=== PATIENT | female | born 1945 | race Caucasian/White ===

== ENCOUNTER 2022-09-07 20:30 | Emergency (ER) | payer MEDICARE, SELFPAY ==
[2022-09-07 20:46] VITALS: BP 134/82; PULSE 81; RESP 22; TEMP 36.2; O2SAT 98; BMI 24.9
--- NOTE | 2022-09-07 21:18 | XRR_ITS ---
PROCEDURE INFORMATION: Exam: XR Right Shoulder Exam date and time: 09/07/2022 9:52 PM Age: 76 years old Clinical indication: Injury or trauma; Fall; Blunt trauma (contusions or hematomas); Shoulder; Right; Additional info: Fall, pain, decreased rom TECHNIQUE: Imaging protocol: Radiologic exam of the right shoulder. Views: 2 or more views. COMPARISON: CR XR shoulder RT min 2V* [id number] 09/21/2015 9:50 AM FINDINGS: Bones/joints: Humeral neck fracture with medial rotation of the fracture component of the head with overlap of the fracture fragments. Soft tissues: Normal. XR/XR shoulder RT min 2V* [id number] IMPRESSION: Humeral neck fracture with medial rotation of the fracture component of the head with overlap of the fracture fragments.
[2022-09-07 22:33] VITALS: RESP 16
[2022-09-07] MEDS: oxyCODONE-APAP 5-325 mg Tablet 1 TAB PO (22:33)
--- NOTE | 2022-09-07 22:45 | ED_ITS ---
HPI - Extremity Problem General: Chief complaint: Extremity Injury, Upper Stated complaint: right shoulder injury Time Seen by Provider: 09/07/22 22:29 Source: patient Mode of arrival: ambulatory Limitations: no limitations History of Present Illness: Patient presents to the emergency department today accompanied by family for evaluation treatment of right shoulder pain after a fall. Patient reports minimal mobility of the arm due to pain in her shoulder. She denies tingling or numbness in her fingers and still has movement to the distal extremity. Review of Systems General: Reports: 10 or more systems reviewed and unremarkable except in HPI and below PFSH ED PFSH: Social History Smoking and tobacco status: never smoked Physical Exam Const: COMMON NORMALS: no acute distress, patient oriented x3 and alert HENMT: COMMON NORMALS: normocephalic, atraumatic and hearing grossly normal bilaterally HEAD & SCALP: normocephalic and atraumatic Eye: COMMON NORMALS: Equal, round and reactive pupils present, EOMs intact bilaterally and conjunctivae normal CONJUNCTIVA: Yes conjunctivae normal PUPIL: Yes Equal, round and reactive pupils present Neck/C-Spine: COMMON NORMALS: full ROM and no JVD Lymph: LYMPHATIC: no lymphadenopathy noted Resp: COMMON NORMALS: normal respiratory effort, No retractions and No use of accessory muscles Cardio: COMMON NORMALS: no JVD and regular rate RATE: regular rate Extremity: NARRATIVE EXTREMITY EXAM: Patient is in significant pain just sitting in the exam room. Patient demon strates mobility of the lower extremity and is neurovascularly intact however, has no capabilities for range of motion to her right shoulder or upper arm. Neuro: COMMON NORMALS: patient oriented x3 SENSORIUM/ORIENTATION: Yes alert Psych: COMMON NORMALS: mental status grossly normal, Normal thought process present, cooperative and normal affect THOUGHT PROCESS: Normal thought process present Skin: COMMON NORMALS: no rashes or lesions noted and turgor normal GENERAL SKIN EXAM: no rashes or lesions noted and turgor normal Course Vital Signs: Vital signs: Vital Signs Temperature 97.2 F L 09/07/22 20:46 Pulse Rate 81 09/07/22 20:46 Respiratory Rate 16 09/07/22 22:33 Blood Pressure 134/82 09/07/22 20:46 Pulse Oximetry 98 09/07/22 20:46 Oxygen Delivery Me thod Room Air 09/07/22 20:46 MDM - Extremity (Nontraumatic) Medical Decision Making Patient presents to the emergency department today for evaluation treatment of right shoulder pain after a fall. Patient's x-ray indicates a humeral neck fracture with rotation of the humeral head which overlaps the fracture fragment s. Discussed this x-ray finding with Dr. Bhatia who agrees that patient will most likely have outpatient follow-up and will most likely not be given surgery. Discussed with patient the findings on her x-ray. Also discussed recommendation for sling and swath and pain control with orthopedic follow-up. Patient is extremely concerned as she has many questions as to how she will cope with an immobile right arm. Explained that she will most likely require help from friends and family-patient lives alone, but that she needs to follow-up with orthopedics to discuss her options for healing or further treatment/intervention. Patient was given a Percocet here in the emergency department for pain prior to application of her sling. Patient was also given 2 Percocets to take home with her as it is Thursday night and there are no pharmacies available or open at this time. Patient was then given a written prescription to take to the pharmacy in the morning to fill for several more days of pain medication while she is waiting to have her follow-up with orthopedics. Differential Diagnosis Unlikely cellulitis (Clavicular fracture, AC joint separation, humeral neck fracture, shoulder contusion) Lab Data Radiology Impressions Shoulder X-Ray 09/07/22 21:18 IMPRESSION: Humeral neck fracture with medial rotation of the fracture component of the head with overlap of the fracture fragments. Discharge Plan Discharge Patient Disposition: Home Clinical Impression: Humerus surgical neck fracture Condition: Stable Prescriptions: No Action simvastatin 20 mg tablet 20 mg PO DAILY amlodipine 10 mg tablet 10 mg PO DAILY potassium chloride 10 mEq tablet extended release 10 meq PO DAILY spironolactone 25 mg tablet 25 mg PO DAILY zolpidem 10 mg tablet PO Discharge Orders: Discharge ED (Routine); Ordered 09/07/22 Ordered By: Stephanie Crawley Referrals: Azul Bartlett APN [Primary Care Provider] - Pj Carias Jr, MD [Family Provider] - Discharge Diet: Usual diet Discharge Activity: Limit activity as instructed Patient Instructions: Fractures - Humerus Activity Restrictions/Additional Instructions: X-ray today shows a fracture in your right upper arm involving the bone that sits in your shoulder joint. The very top part of the bone remained in the socket however, there is a fracture to the bone below this area. We are putting you in a sling which needs to remain in place at all times. We have requested a follow-up appointment with orthopedics for an evaluation as you will need to have a discussion regarding your options for healing or repair. We have provided you a short course of some pain medication to help with your discomfort during this time. You may wish to stay seated in a recliner to sleep and, pack pills around your arm to help prevent moving at night. Coding Level of Care Code ED Financial Advisor Trainee for Tom Bray
--- NOTE | 2022-09-08 10:06 | DCPLANNER ---
Addendum entered by Bernie Hui 09/09/22 08:09: sales service manager received the following message from the ortho clinic regarding follow up appointment: patient called back and stated she already has a follow up w/ Dr. Jaquez in [facility]. Original Note: sales service manager had message to schedule a follow up appointment for patient with ortho. sales service manager sent patients information to the front office staff at ortho. Patients information will be printed and reviewed. Clinic will call patient with appointment information.
== END 2022-09-08 00:15 | disposition home or self-care (01) ==
PROVIDERS: Emergency Provider Physician Assistant; Family Provider Family Medicine; PCP Nurse Practitioner
DX: S42.211A Unspecified displaced fracture of surgical neck of right humerus, initial encounter for closed fracture (principal); W19.XXXA Unspecified fall, initial encounter
CPT/HCPCS: 73030; 99283

== ENCOUNTER 2023-12-18 12:26 | Outpatient (CLI) | payer MEDICARE, SELFPAY ==
--- NOTE | 2023-12-18 12:30 | XR_ITS ---
WS: [id number] Right shoulder, 2 views, 12/18/2023 Clinical Data: R SHOULDER REPAIR/R SHOULDER PAIN Comparison: Right shoulder, 09/07/2022 Findings: The internal fixation of the fracture of the right humeral head and shaft is seen. There is a lateral plate fixed with multiple screws. The adjacent right scapula, right clavicle and ribs are intact. XR/XR shoulder RT min 2V* [id number] Impression: Internal fixation of right humeral head and shaft fracture.
--- NOTE | 2023-12-18 12:30 | XR_ITS ---
WS: [email or web address] Chest 2 views, 12/18/2023 Clinical Data: CHEST PAIN ON RESPIRATION Comparison: Two-view chest, 05/21/2016 Findings: No nodules, masses or effusions are seen. The heart is normal. The pulmonary vascularity is not increased. No pneumonia or pneumothorax is seen. The aortic arch and descending thoracic aorta s how mild tortuosity. There is internal fixation of a proximal right humeral fracture. XR/XR chest 2V* [id number] Impression: Atherosclerosis.
== END 2023-12-18 12:27 | disposition home or self-care (01) ==
LOC: RAD 12:29
PROVIDERS: Family Provider Family Medicine; PCP Family Medicine; Visit Provider Family Medicine
DX: M25.511 Pain in right shoulder (principal); R07.1 Chest pain on breathing; Z96.611 Presence of right artificial shoulder joint
CPT/HCPCS: 71046; 73030

== ENCOUNTER 2024-01-19 15:30 | Outpatient (CLI) | payer MEDICARE, SELFPAY ==
--- NOTE | 2024-01-19 15:34 | CT_ITS ---
WS: [id number] CT chest wo con [id number] HISTORY: CHEST PAIN ON RESPIRATION TECHNIQUE: Axial imaging performed through the thorax. Coronal and sagittal reformats are submitted. All CT scans at [facility] use at least one of these dose optimization techniques: automated exposure control; mA and/or kV adjustment per patient size (includes targeted exams where dose is mat ched to clinical indication); or iterative reconstruction. CONTRAST: None DLP: 256.31 mGy.cm COMPARISON: Chest radiograph 12/18/2023 Lungs and central airway: Normally aerated lungs. There are multiple bilateral and multi lobar nodule s. The largest nodule is 5 mm in the RIGHT lower lobe, image 36 of series 4. There are a few addition al 4 mm nodules and micronodules. No mass. No endobronchial lesions. Pleura: Normal. No pleural effusion. Heart and pericardium: Normal size heart with no pericardial effusion. Mediastinum and agustin: No mediastinum or hilar adenopathy. Vessels: Mild atherosclerosis aorta. Normal size pulmonary artery. There are a few scattered coronary artery calcifications. Chest wall and lower neck: Lobulated soft tissue mass in the central posterior LEFT breast measures 1 .8 x 3.5 cm and needs to be further evaluated. No prior mammograms available. Upper abdomen: Suprarenal aortic calcifications. The adrenal glands aren't completely included but ne gative as visualized. Mild pancreatic atrophy. Osseous structures: Prior plate and screw fixation proximal RIGHT humerus. CT/CT chest wo con [id number] IMPRESSION: 1. Bilateral, multilobar pulmonary nodules. The largest is 5 mm in the RIGHT l ower lobe. Indeterminate nodule. Due to slightly spiculated margins recommend c hest CT at 12 months. Multiple indeterminate pulmonary nodules. The largest one is solid and measures 5 mm. For multiple nodules <6 mm in a patient of unknown risk, with the larges t one being solid, for a low-risk patient, recommend no follow-up. For a high-r isk patient, CT at 12 months is optional with stronger consideration if there i s suspicious nodule morphology and/or upper lobe location. 2. Lobulated LEFT breast mass measures 1.8 x 3.5 cm. Recommend evaluation by di agnostic mammogram and ultrasound.
== END 2024-01-19 15:31 | disposition home or self-care (01) ==
PROVIDERS: Family Provider Family Medicine; PCP Family Medicine; Visit Provider Family Medicine
DX: R91.8 Other nonspecific abnormal finding of lung field (principal); N63.20 Unspecified lump in the left breast, unspecified quadrant; I70.0 Atherosclerosis of aorta; R07.1 Chest pain on breathing
CPT/HCPCS: 71250

== ENCOUNTER 2024-02-11 11:46 | Outpatient (CLI) | payer MEDICARE, SELFPAY ==
--- NOTE | 2024-02-11 11:58 | MM_ITS ---
WS: [email or web address] BILATERAL 3D TOMOSYNTHESIS DIGITAL DIAGNOSTIC MAMMOGRAPHY WITH CAD CLINICAL INFORMATION: BREAST MASS HISTORY: LEFT breast mass on CT COMPARISON: CT chest 01/19/2024 TECHNIQUE: Bilateral CC, MLO, and ML views. FINDINGS: Scattered fibroglandular densities bilaterally. Lobulated heterogeneous spiculated mass lower outer L EFT breast measuring 2.8 x 2.0 cm highly suspicious for malignancy. Associated punctate calcification s. Irregular margins. This is deep to the palpable marker. RIGHT breast is unremarkable. ULTRASOUND BREAST LEFT TECHNIQUE: Ultrasound left breast focused area of concern. CLINICAL INFORMATION: BREAST MASS FINDINGS: Ultrasound LEFT breast area of concern. Solid hypoechoic irregular densely shadowing mass suspicious for neoplasm at the 5 o'clock position 3 cm from the nipple. Associated vascularity. This measures ap proximately 3.5 x 2.9 x 1.9 cm with irregular margins suggestive of surrounding parenchymal invasion also seen on the mammogram. Recommend further evaluation with ultrasound-guided biopsy. Ultrasound LEFT axilla. No lymphadenopathy in the LEFT axilla. No suspicious lymph nodes visualized. A few normal sized normal-appearing lymph nodes. MM/MM diag BI tomosynthesis [id number] IMPRESSION: DENSITY: There are scattered areas of fibroglandular density. BI-RADS: 5 - Highly suggestive of Malignancy. FOLLOW UP: US Guided Biopsy Recommended Recommendation guided biopsy of the suspicious LEFT breast mass
== END 2024-02-11 11:47 | disposition home or self-care (01) ==
LOC: RAD 11:47
PROVIDERS: Family Provider Family Medicine; PCP Family Medicine; Visit Provider Family Medicine
DX: N63.23 Unspecified lump in the left breast, lower outer quadrant (principal); R92.323 Mammographic fibroglandular density, bilateral breasts; R92.1 Mammographic calcification found on diagnostic imaging of breast
CPT/HCPCS: 76642; 77062; G0279

== ENCOUNTER 2024-03-09 13:37 | Outpatient (CLI) | payer MEDICARE, SELFPAY ==
--- NOTE | 2024-03-09 13:47 | US_ITS ---
WS: [id number] ULTRASOUND-GUIDED LEFT BREAST BIOPSY HISTORY: LEFT BREAST MASS COMPARISON: 02/11/2024 Procedure, risks and complications are explained to the patient. Medications are reviewed. Consent is obtained. The mass in the LEFT breast is localized with ultrasound. Mass localizes to 5:00, 3 cm from the nippl e. Skin is cleansed with ChloraPrep and anesthetized with 1% buffered lidocaine. Small dermatome is m estephania. Under sterile conditions mass is biopsied with a 14-gauge Achieve needle. Multiple core biopsies are performed. Material placed in formalin and sent to pathology for review. No complications encoun tered. Breast tissue marker ([employer] ultrasound enhanced ribbon): Single. Patient left the radiology suite with no complications. Patient is instructed to return to [facility] or [facility] with any concerns. US/[place] [id number] IMPRESSION: 1. Uncomplicated core needle biopsy LEFT breast mass centered at 5:00. 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 Breast profile is pending. Separate breast prognostic profile will be submitted. RECOMMENDATION: Follow-up with primary physician, breast surgeon and oncology.
== END 2024-03-09 13:38 | disposition home or self-care (01) ==
LOC: RAD 13:37
PROVIDERS: PCP Family Medicine; Visit Provider Family Medicine
DX: N63.23 Unspecified lump in the left breast, lower outer quadrant (principal)
CPT/HCPCS: 19083; 88305; 88342; 88361; 88374

== ENCOUNTER 2024-06-15 12:44 | Oncology outpatient (recurring) (ONCR) | payer MEDICARE, SELFPAY ==
[2024-06-08 16:59] LABS: Basophils % 0.4 %; Eosinophils # 0.2 10^3/uL (0.0-0.8); Eosinophils % 2.1 %; Hematocrit 42.9 % (36-47); Lymphocytes # 2.8 10^3/uL (0.8-4.8); Lymphocytes % 25.3 %; Mean Corpuscular HGB Conc 32.6 g/dL (30-55); Mean Corpuscular Hemoglobin 28.7 pg (27-33); Mean Corpuscular Volume 87.9 fl (85-98); Mean Platelet Volume 10.4 fL (7.4-10.4); Monocytes # 0.6 10^3/uL (0.2-0.9); Monocytes % 5.5 %; Neutrophils % 66.3 %; Nucleated Red Blood Cells % 0 %; Platelet Count 270 10^3/cmm (157-399); Red Blood Count 4.88 10^6/uL (3.85-5.65); Red Cell Distribution Width 12.6 % (12.1-15.1); White Blood Count 10.99 10^3/uL (3.29-11.43)
[2024-06-08 17:36] LABS: Alanine Aminotransferase 15 U/L (0-33); Albumin Level 4.6 g/dL (3.5-5.2); Alkaline Phosphatase 129 U/L (35-105); Anion Gap 16.8 (5-19); Aspartate Amino Transferase 18 U/L (0-32); Blood Urea Nitrogen 13 mg/dL (8-23); CA 15-3 22.9 U/mL (0-25); Calcium 9.9 mg/dL (8.5-10.5); Carbon Dioxide 24 mmol/L (22-29); Chloride 106 mmol/L (98-107); Creatinine Clr Calc Pharmacy 42.8929; Globulin 2.9 g/dL (1.3-4.6); Glucose 101 mg/dL (65-115); Lactate Dehydrogenase 171 U/L (135-214); Osmolality Calculated 296 mOsm/kg (285-295); Potassium 3.8 mmol/L (3.5-5.1); Sodium 143 mmol/L (136-145); Total Bilirubin 0.5 mg/dL (0.15-1.2); Total Protein 7.5 g/dL (6.6-8.7)
--- NOTE | 2024-06-15 13:56 | N.ONRAD NP_ITS ---
Radiation Oncology New Patient Visit Patient: Anca García MR#: [id number] : 1945 Age: 78 Sex: Female Dictated by: Dr. Dionna Hernández Date of Service: 06/15/2024 Referring Physician(s) : Dr. Cooper Diagnosis: Stage T2 N0 left-sided breast cancer, stage IIa Radiotherapy to date: Summary > No prior radiation therapy. Chief Complaint / History of Present Illness: Patient has been recently diagnosed with an ER positive H ER 2 negative grade 3 stage T2 N0 breast cancer of the left breast. She has had breast conserving surgery on the left breast. She also had an area remove the right breast which was benign. She is here today to discuss the radiation portion of her treatment after having had breast conserving surgery. Subjectively her only complaint today has to do with her back which apparently has been a long-term issue but had gotten worse since her surgery on her humerus in 2022. This is located in the mid thoracic area and radiates around to the front. When she takes a deep breath sometimes it will radiate under the right scapula. Current Medications: amlodipine 10 mg PO DAILY potassium chloride ER 10 mEq PO DAILY simvastatin 20 mg PO DAILY spironolactone 25 mg PO DAILY zolpidem PO Allergies: No Known Allergies Allergy Medical History: No history of collagen vascular disease. No previous radiation therapy. Right humeral fracture hypotension Surgical History: S/P lumpectomy, left breast Family History: Her daughter actually had a sarcoma in her 20s and from this Social History: Smoking and tobacco/nicotine status: never used tobacco/nicotine Current Complaints / Review of Systems: . Only complaint is to do with her midthoracic back pain Vital Signs: Performed on 06/15/2024 12:56 PM BMI - 24.186 kg/m2 (high), Height - 61 in, Weight - 128 lbs, Temperature - 96.8 f, Pulse - 83 /min, Respiration - 18 /min, O2 Sat - 97 %, Pain - 0, Fatigue - 0 and BP - 133/ 82 mm(hg). Physical Exam: General: Patient is in no apparent distress today. She is by herself today. HEENT: Normocephalic atraumatic. Pupils are equal, sclera clear, extraocular muscles intact. Pulmonary: Respiratory is regular nonlabored Cardiovascular: Regular rate and rhythm Breast: The right breast has a very healed medial lower incision. The left breast has a left lower outer quadrant healing incision. The axillary incision on the left is also healing nicely. There is no erythema or drainage noted in either of her incisions. Abdomen: Patient's abdomen is flat with minimal adipose tissue Extremities: No lymphedema noted in the upper extremities Neurological: Alert and orient x 3. Gait and speech within normal limits Psychological: Affect appropriate for current situation Performance Status: 100 Imaging: See HPI Impression: Stage II, T2 N0 ER positive grade 3H ER 2 negative left-sided breast cancer Plan: I reviewed with her her pathology. We talked about breast conserving therapy. She understands the radiation is a portion of that treatment. We talked about the different protocols we have now for breast cancer patients. These range from 4 weeks down to once a week for 5 weeks. All of these worked quite well and have the same control rate. We talked about the difference of his between the different treatments. We reviewed the risks and side effects both acute and long-term. After some discussion she would like to proceed with the once a week treatment. I do think this would be easier for her with her back discomfort that she has. We also touched on how she was not happy with taking any medication or chemotherapy. She is contemplating discontinuing follow-up in medical oncology as she is really not interested in taking any medications. At this point of asked her to return next week to undergo simulation. During that time she will work on stretching out her left arm. Her shoulder is still a little tight after the surgery. Will also get all of the imaging she had done in [place] and see if any images were done on her back. Will see if we can determine the etiology of her back discomfort which bothered her considerably during our encounter of 45 minutes. Signed by: 06/15/2024 1:54:35 PM <<Signature on File>> Time spent with patient:45 CPT Code: CPT Code:
== END 2024-06-17 23:59 | disposition home or self-care (01) ==
PROVIDERS: PCP Family Medicine; Visit Provider Internal Medicine
DX: C50.512 Malignant neoplasm of lower-outer quadrant of left female breast (principal); Z17.0 Estrogen receptor positive status [ER+]; M54.6 Pain in thoracic spine
CPT/HCPCS: 36415; 80053; 83615; 85025; 86300; 99204; 99205

== ENCOUNTER 2024-07-12 13:01 | Oncology outpatient (recurring) (ONCR) | payer MEDICARE, SELFPAY ==
--- NOTE | 2024-06-27 14:21 | ONCRAD TMN_ITS ---
dRadiation Oncology Weekly Treatment Management Patient: Ricky March> MR#: [id number] : 1945> Attending Physician: Dr. Dionna Hernández Date of Service: 06/27/2024 Fractions: 105 Referring Physician(s) : Diagnosis: C50.912 - Malignant neoplasm of unspecified site of left female breast, Diagnosed 06/16/2024 (Active) Radiotherapy to date: Course: L breast, Treatment Site: Lt Breast, Ref. ID: CTV, Energy: 6X, Dose/Fx (cGy): 570, #Fx: 1 / 5, Dose Correction (cGy): 0, Total Dose Delivered (cGy): 570, Start Date: 06/27/2024, Elapsed Days: 0 Reason for visit: The patient is being seen today as part of their regularly scheduled weekly on treatment visits to assess for acute toxicities from radiotherapy. Review of Systems: Patient has had no questions or problems today relating to her breast cancer. She did say that her ears have been hurting and she was placed on antibiotic which should be finished in the next day or so. Vital Signs: Performed on 06/27/2024 10:53 AM BMI - 23.997 kg/m2 (high), Height - 61 in, Weight - 127 lbs, Temperature - 98.7 f, Pulse - 90 /min, Respiration - 17 /min, O2 Sat - 96 %, Pain - 4, Fatigue - 0 and BP - 115/ 52 mm(hg)(/low). Physical Exam: No changes on exam in regards to her breast. Examination of both of her ear canals reveal them to be quite small and actually very obscured with hair. I was unable to visualize either tympanic membrane. Imaging: Radiation therapy imaging related to accurate target localization (i.e. KV, MV and CBCT) was reviewed. Appropriate changes, if any, were made to ensure treatment accuracy. Plan: We talked about different lotions she can use on her skin. I reminded her she can use cortisone cream if she begins to have a pruritic area. We talked about her ears and how she might try adding Mucinex to her lined up to see if that will help clear her ears. I have otherwise encouraged her to finish her antibiotic and stay on her decongestant. Signed by: Dr. Dionna Hernández 06/27/2024 2:19:37 PM
[2024-06-30] MEDS: gadobenate dimeglumine 20 mL vial 12 ML IV (10:40)
--- NOTE | 2024-06-30 11:45 | MR_ITS ---
WS: [id number] MRI THORACIC SPINE with and without contrast HISTORY: mid thoracic back pain COMPARISON: 06/25/2016 TECHNIQUE: Multiplanar sequences are performed in sagittal and axial planes. Post contrast imaging MultiHance 12 mL. Mild RIGHT lung curvature thoracic spine. Mild degenerative disc disease and osteophytosis throughout the cervical spine encroaching upon the ventral canal. Mild increase in thoracic kyphosis. Posterior thoracic alignment is normal. No marrow edema or acute fracture. Signal within the thoracic cord is normal. Conus tapers normally at the T11-T12 level. T1-2: Small central disc protrusion with no contact on the cord. T2-3: Normal. T3-4: Normal. T4-5: Normal. T5-6: Normal. T6-7: Normal. T7-8: Mild facet arthritis. T8-9: Normal. T9-10: Mild bilateral facet arthritis. Mild foraminal stenosis. T10-11: Normal. T11-12: Normal. Paraspinal soft tissues are normal. No destructive bone lesions or evidence for metastatic disease. Simple cyst upper pole LEFT kidney is 9 mm. MR/MR thoracic spine wo/w [id number] IMPRESSION: 1. No thoracic cord compression. 2. No enhancing bone or soft tissue masses to suggest metastatic disease. 3. Small central disc protrusion at T1-2. No change since 2016.
--- NOTE | 2024-07-04 15:29 | ONCRAD TMN_ITS ---
Radiation Oncology Weekly Treatment Management Patient: Anca García MR#: [id number] : 1945 Attending Physician: Dr. Dionna Hernández Date of Service: 07/04/2024 Fractions: 2 out of 5 Referring Physician(s) : Diagnosis: C50.912 - Malignant neoplasm of unspecified site of left female breast, Diagnosed 06/16/2024 (Active) Radiotherapy to date: Course: L breast, Treatment Site: Lt Breast, Ref. ID: CTV, Energy: 6X, Dose/Fx (cGy): 570, #Fx: 2 / 5, Dose Correction (cGy): 0, Total Dose Delivered (cGy): 1,140, Start Date: 06/27/2024, Elapsed Days: 7 Reason for visit: The patient is being seen today as part of their regularly scheduled weekly on treatment visits to assess for acute toxicities from radiotherapy. Review of Systems: Patient denies any complaints Vital Signs: Performed on 07/04/2024 2:50 PM BMI - 23.997 kg/m2 (high), Height - 61 in, Weight - 127 lbs, Temperature - 98.7 f, Pulse - 91 /min, Respiration - 17 /min, O2 Sat - 95 % (low), Pain - 4, Fatigue - 0 and BP - 124/ 57 mm(hg)(/low). Physical Exam: No changes on exam Imaging: Radiation therapy imaging related to accurate target localization (i.e. KV, MV and CBCT) was reviewed. Appropriate changes, if any, were made to ensure treatment accuracy. Plan: Will continue with her treatments as planned Signed by: Dr. Dionna Hernández 07/04/2024 3:28:04 PM
--- NOTE | 2024-07-07 14:30 | CT_ITS ---
WS: [email or web address] CT chest w con* [id number] HISTORY: fu ct lung nodules TECHNIQUE: Axial imaging performed through the thorax. Coronal and sagittal reformats are submitted. All CT scans at [facility] use at least one of these dose optimization techniques: automated exposure control; mA and/or kV adjustment per patient size (includes targeted exams where dose is matched to clinical indication); or iterative reconstruction. CONTRAST: Omnipaque 350; 100 mL IV. DLP: 244.75 mGy.cm COMPARISON: 02/15/2024 Lungs and central airway: Mildly hyperinflated lungs. Numerous bilateral, noncalcified pulmonary nodules are reidentified. The largest nodule is 5 mm RIGHT lower lobe. None of the nodules have increased in size. No new nodules are identified. Some nodules are better visualized today due to volume averaging. Pleura: Normal. No pleural effusion. Heart and pericardium: Mild LEFT heart enlargement. Mediastinum and agustin: No mediastinum or hilar adenopathy. Vessels: Normal size aortic and pulmonary artery. No coronary artery calcifications. Chest wall and lower neck: Lumpectomy site LEFT breast. There is a small post operative collection in the medial RIGHT breast measuring 9 x 16 mm. Upper abdomen: Small hiatal hernia. Cholelithiasis. Cortical thinning and scarring involving the upper pole of each kidney. Osseous structures: Plate and screw fixation proximal RIGHT humerus. CT/CT chest w con* [id number] IMPRESSION: 1. Stable subcentimeter pulmonary nodules. Largest is 5 mm in the RIGHT lower lobe. 2. Bilateral postoperative changes in each breast. 3. Cholelithiasis without acute cholecystitis. 4. Cortical thinning and scarring upper pole of each kidney. 5. No mediastinal or hilar adenopathy. 6. Small hiatal hernia.
[2024-07-07] MEDS: iohexol 350 mg/mL 500 mL Btl (per mL) IV (15:42)
--- NOTE | 2024-07-12 13:37 | ONCRAD TMN_ITS ---
Radiation Oncology Weekly Treatment Management Patient: Anca García MR#: [id number] : 1945 Attending Physician: Elio Perez Date of Service: 07/12/2024 Referring Physician(s) : Diagnosis: C50.912 - Malignant neoplasm of unspecified site of left female breast, Diagnosed 06/16/2024 (Active) Radiotherapy to date: Course: L breast, Treatment Site: Lt Breast, Ref. ID: CTV, Energy: 6X, Dose/Fx (cGy): 570, #Fx: 3 / 5, Dose Correction (cGy): 0, Total Dose Delivered (cGy): 1,710, Start Date: 06/27/2024, Elapsed Days: 15 Reason for visit: The patient is being seen today as part of their regularly scheduled weekly on treatment visits to assess for acute toxicities from radiotherapy. Review of Systems: No voiced complaints. She has had 3 of 5 fractions that are delivered once per week. She is going to utilize CeraVe creams more often now. Vital Signs: Performed on 07/12/2024 1:08 PM BMI - 23.052 kg/m2 (high), Height - 61 in, Weight - 122 lbs, Temperature - 96.8 f, Pulse - 94 /min, Respiration - 18 /min, O2 Sat - 97 %, Pain - 0, Fatigue - 0 and BP - 99/ 62 mm(hg)(/low). Physical Exam: Alert and oriented and answers questions appropriately. Skin shows mild erythema of the left breast. Imaging: Radiation therapy imaging related to accurate target localization (i.e. KV, MV and CBCT) was reviewed. Appropriate changes, if any, were made to ensure treatment accuracy. Plan: Continue XRT. Start using CeraVe. Signed by: Elio Perez 07/12/2024 1:35:02 PM
== END 2024-07-15 23:59 | disposition home or self-care (01) ==
PROVIDERS: PCP Family Medicine; Visit Provider Radiology Radiation Oncology
DX: Z51.0 Encounter for antineoplastic radiation therapy (principal); C50.912 Malignant neoplasm of unspecified site of left female breast
CPT/HCPCS: 71260; 72157; 77280; 77295; 77300; 77334; 77387; 77412; 99024

== ENCOUNTER 2024-07-26 13:01 | Oncology outpatient (recurring) (ONCR) | payer MEDICARE, SELFPAY ==
--- NOTE | 2024-07-19 13:32 | ONCRAD TMN_ITS ---
Radiation Oncology Weekly Treatment Management Patient: Ricky Baugh MR#: [id number] : 1945> Attending Physician: Elio Perez Date of Service: 07/19/2024 Referring Physician(s) : Diagnosis: C50.912 - Malignant neoplasm of unspecified site of left female breast, Diagnosed 06/16/2024 (Active) Radiotherapy to date: Course: L breast, Treatment Site: Lt Breast, Ref. ID: CTV, Energy: 6X, Dose/Fx (cGy): 570, #Fx: 4 / 5, Dose Correction (cGy): 0, Total Dose Delivered (cGy): 2,280, Start Date: 06/27/2024, Elapsed Days: 22 Reason for visit: The patient is being seen today as part of their regularly scheduled weekly on treatment visits to assess for acute toxicities from radiotherapy. Review of Systems: Patient has received 4 out of 5 fractions to the LEFT BREAST. She continues to use creams and has no significant skin reaction Vital Signs: Performed on 07/19/2024 12:53 PM BMI - 22.976 kg/m2 (high), Height - 61 in, Weight - 121.6 lbs, Temperature - 96.6 f, Pulse - 84 /min, Respiration - 18 /min, O2 Sat - 99 %, Pain - 0, Fatigue - 0 and BP - 118/ 73 mm(hg). Physical Exam: Alert and oriented and answers questions appropriately. Skin intact Imaging: Radiation therapy imaging related to accurate target localization (i.e. KV, MV and CBCT) was reviewed. Appropriate changes, if any, were made to ensure treatment accuracy. Plan: Continue XRT Continue utilizing creams Signed by: Elio Perez 07/19/2024 1:31:27 PM
--- NOTE | 2024-07-26 15:20 | N.ONRD TS_ITS ---
Radiation Oncology Treatment Summary Patient: Anca García MR#: [id number] : 1945 Age: 78 Sex: Female Dictated by: Dr. Dionna Hernández Date of Service: 07/26/2024 Referring Physician(s) : Diagnosis: C50.912 - Malignant neoplasm of unspecified site of left female breast, Diagnosed 06/16/2024 (Active) Radiotherapy to Date: Course: L breast, Treatment Site: Lt Breast, Ref. ID: CTV, Energy: 6X, Dose/Fx (cGy): 570, #Fx: 5 / 5, Dose Correction (cGy): 0, Total Dose Delivered (cGy): 2,850, Start Date: 06/27/2024, End Date: 07/26/2024, Elapsed Days: 29 Clinical Summary: The patient tolerated RT well. She had minimal skin reaction Plan: End of treatment today. Continue on the above medication until the skin reaction resolves. Follow up in one month. Signed by: Dr. Dionna Hernández>07/26/2024 3:18:44 PM <<Signature on File>>
== END 2024-08-15 23:59 | disposition home or self-care (01) ==
PROVIDERS: PCP Family Medicine; Visit Provider Radiology Radiation Oncology
DX: Z51.0 Encounter for antineoplastic radiation therapy (principal); C50.512 Malignant neoplasm of lower-outer quadrant of left female breast; Z17.0 Estrogen receptor positive status [ER+]
CPT/HCPCS: 77336; 77387; 77412; 99024

== ENCOUNTER 2024-08-24 12:33 | Oncology outpatient (recurring) (ONCR) | payer MEDICARE, SELFPAY ==
--- NOTE | 2024-08-24 14:32 | ONCRAD EPV_ITS ---
Radiation Oncology Established Patient Visit Patient: Anca García [id number] : 1945 Age: 78 Sex: Female Dictated by: Dr. Eric Samuel Date of Service: 08/24/2024 Referring Physician(s) : Diagnosis: C50.912 - Malignant neoplasm of unspecified site of left female breast, Diagnosed 06/16/2024 (Active) Radiotherapy to Date: Course: L breast, Treatment Site: Lt Breast, Ref. ID: CTV, Energy: 6X, Dose/Fx (cGy): 570, #Fx: 5 / 5, Dose Correction (cGy): 0, Total Dose Delivered (cGy): 2,850, Start Date: 06/27/2024, End Date: 07/26/2024, Elapsed Days: 29 Current History: Following the completion of treatment she had an episode of shingles involving her low back and a yeast infections. She was treated for both with resolution of her infections. She has no post shingles pain. She was outside in her garden and tripped and fell against her left chest and breast resulting in significant chest wall pain worse with left arm elevation and moving from bed to chair and chair to standing. He used Tylenol with no improvement. She has seen and has declined any systemic treatment. Dr. Cooper has requested mammography in 10/2024. Vital Signs: Performed on 08/24/2024 1:05 PM BMI - 22.334 kg/m2, Height - 61 in, Weight - 118.2 lbs, Temperature - 97.9 f, Pulse - 78 /min, Respiration - 20 /min, O2 Sat - 99 %, Pain - 10, Fatigue - 0 and BP - 125/ 68 mm(hg). Physical Exam: General: Alert and oriented x 3. In mild pain distress with elevation of her left arm. Left breast mild tanning. Mild left ant lateral chest wall tenderness with no palpable rib disruption . Performance Status: ECOG PS 1 Lab: None pending. Pathology: Primary, c50.912 - malignant neoplasm of unspecified site of left female breast, Diagnosed 06/16/2024 (active) . Imaging: none Impression: Good acute recovery from radiation. Will schedule 10/2024 mammogram here. Likely left rib fracture. No real value to obtain imaging as it will be managed symptomatically in any case. Recommend topical diclofenac. Follow up with Dr. Hernández in 01/2025. Signed by: 08/24/2024 2:30:57 PM <<Signature on File>> Time spent with patient: 20 minutes CPT Code: * CPT Code: *
== END 2024-09-14 23:59 | disposition home or self-care (01) ==
PROVIDERS: PCP Family Medicine; Visit Provider Radiology Radiation Oncology
DX: Z08 Encounter for follow-up examination after completed treatment for malignant neoplasm (principal); C50.912 Malignant neoplasm of unspecified site of left female breast; Z92.3 Personal history of irradiation; R07.89 Other chest pain
CPT/HCPCS: 99024

== ENCOUNTER 2024-10-18 11:28 | Outpatient (CLI) | payer MEDICARE, SELFPAY ==
--- NOTE | 2024-10-18 11:30 | MM_ITS ---
WS: [id number] DIAGNOSTIC BILATERAL DIGITAL BREAST TOMOSYNTHESIS MAMMOGRAPHY WITH CAD HISTORY: Follow up for treated breast carcinoma left side. COMPARISON: 05/05/2024, 04/22/2024 and 02/11/2024 TECHNIQUE: Bilateral craniocaudad, mediolateral oblique, and mediolateral views are submitted with tomosynthesis and SM. Computer aided detection utilized. Breast composition: There are scattered areas of fibroglandular density. Previously described mass in the central LEFT breast has been surgically removed. The lumpectomy site is noted. There is a clip at the lumpectomy site. Postsurgical changes in the soft tissue with overlying skin thickening from radiation treatment. No recurrent mass. Overall prominent trabecular pattern throughout the LEFT breast. No suspicious findings within the RIGHT breast. Benign RIGHT breast calcifications. MM/MM diag BI tomosynthesis [id number] IMPRESSION: BI-RADS: 2 - Benign. FOLLOW UP: 1 Year Follow-up
== END 2024-10-18 11:29 | disposition home or self-care (01) ==
PROVIDERS: PCP Family Medicine; Visit Provider Surgery
DX: C50.512 Malignant neoplasm of lower-outer quadrant of left female breast (principal); Z17.0 Estrogen receptor positive status [ER+]; R92.323 Mammographic fibroglandular density, bilateral breasts; Z98.890 Other specified postprocedural states; R92.1 Mammographic calcification found on diagnostic imaging of breast
CPT/HCPCS: 77062; G0279

== ENCOUNTER 2025-01-30 08:51 | Outpatient (CLI) | payer MEDICARE, SELFPAY ==
--- NOTE | 2025-01-30 08:57 | CT_ITS ---
WS: [id number] CT chest wo con [id number] HISTORY: PULMONARY NODULES TECHNIQUE: Axial imaging performed through the thorax. Coronal and sagittal reformats are submitted. All CT scans at [facility] use at least one of these dose optimization techniques: automated exposure control; mA and/or kV adjustment per patient size (includes targeted exams where dose is matched to clinical indication); or iterative reconstruction. CONTRAST: None DLP: 213.39 mGy.cm COMPARISON: 07/07/2024, 01/19/2024 Lungs and central airway: Mild pulmonary hyperexpansion. Numerous bilateral pulmonary nodules are reidentified. The largest nodule is 5 mm in the RIGHT lower lobe. No new pulmonary nodule. There is a new area of pleural and subpleural interstitial thickening in the periphery of the LEFT upper lobe. This corresponds to the post radiation treatment site for breast neoplasm. 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 Pleura: Normal. No pleural effusion. Heart and pericardium: Mild cardiomegaly. Mediastinum and agustin: No mediastinal or hilar adenopathy. Vessels: Atherosclerosis aorta which is mildly ectatic. Normal size pulmonary artery. Chest wall and lower neck: Normal lower neck. There is soft tissue thickening and changes in the LEFT breast parenchyma at the site of prior postradiation field. Just deep to this is the post radiation pneumonitis in the LEFT upper lobe. Upper abdomen: Cholelithiasis. No evidence for acute cholecystitis. No adrenal mass. Osseous structures: Prior ORIF RIGHT humerus. CT/CT chest wo con [id number] IMPRESSION: 1. Very small subcentimeter pulmonary nodules are stable. Nodules are stable s elena 01/19/2024 the largest nodule is 5 mm in the RIGHT lower lobe with no change . Consider 12-month chest CT follow-up to determine long-term stability. 2. New pleural and subpleural interstitial thickening and groundglass attenuat ion in the LEFT upper lobe. This is most consistent with radiation pneumonitis. Pulmonary changes are within the post radiation field for breast cancer treatm ent. 3. New soft tissue thickening involving the LEFT breast consistent with prior radiation therapy treatment. 4. No mediastinal or hilar adenopathy. 5. Cholelithiasis without acute cholecystitis. 6. Atherosclerosis aorta.
== END 2025-01-30 08:52 | disposition home or self-care (01) ==
LOC: RAD 08:52
PROVIDERS: PCP Nurse Practitioner Family; Visit Provider Nurse Practitioner Family
DX: R91.8 Other nonspecific abnormal finding of lung field (principal); I51.7 Cardiomegaly; J98.4 Other disorders of lung; N64.59 Other signs and symptoms in breast; K80.20 Calculus of gallbladder without cholecystitis without obstruction; Z98.890 Other specified postprocedural states
CPT/HCPCS: 71250

== ENCOUNTER 2025-02-13 10:23 | Oncology outpatient (recurring) (ONCR) | payer MEDICARE, SELFPAY ==
--- NOTE | 2025-02-13 11:48 | ONCRAD EPV_ITS ---
Radiation Oncology Established Patient Visit Patient: Anca García [id number] : 1945 Age: 79 Sex: Female Dictated by: Dr. Dionna Hernández Date of Service: 02/13/2025 Referring Physician(s) : Diagnosis: C50.912 - Malignant neoplasm of unspecified site of left female breast, Diagnosed 06/16/2024 (Active) Radiotherapy to Date: Course: L breast, Treatment Site: Lt Breast, Ref. ID: CTV, Energy: 6X, Dose/Fx (cGy): 570, #Fx: 5 / 5, Dose Correction (cGy): 0, Total Dose Delivered (cGy): 2,850, Start Date: 06/27/2024, End Date: 07/26/2024, Elapsed Days: Current History: Patient is a 79-year-old lady who was treated last spring for a stage I breast cancer. Since that time she has had 1 accident where she fell and hurt her left sided rib cage. She has also had a shingles outbreak and a yeast infection. Today she is actually feeling pretty good her only real concern is getting her medications refilled. She also has even had a CT of her chest which did not show any changes. Current Medications: Allergies: Current Complaints / Review of Systems: . Vital Signs: Performed on 02/13/2025 10:38 AM BMI - 22.22 kg/m2, Height - 61 in, Weight - 117.6 lbs, Temperature - 96.9 f, Pulse - 75 /min, Respiration - 17 /min, O2 Sat - 98 %, Pain - 0, Fatigue - 0 and BP - 111/ 68 mm(hg). Physical Exam: General: Alert and oriented x 3. No acute distress. HEENT: Normocephalic, atraumatic. Extraocular Movements Intact: Pupils Equal, Round, Reactive to Light and Accommodation: Sclerae anicteric. Oral cavity is clear without lesions, masses or ulcers. . LUNGS: Respiratory rate is regular nonlabored. HEART: Regular rate and rhythm, normal S1 and S2 without murmur, gallop or rub. ABDOMEN: Soft, nontender, nondistended without masses or organomegaly. Bowell sounds are present. EXTREMITIES: No peripheral edema is identified Breast: Her breast is still just mildly hyperpigmented. No masses could be appreciated. NEUROLOGIC alert and orient x 3. Gait speech within normal limits. Performance Status: KPS 90 Lab: None pending. Pathology: Primary, c50.912 - malignant neoplasm of unspecified site of left female breast, Diagnosed 06/16/2024 (active) . Imaging: See HPI Impression: Early breast cancer status post breast conserving therapy Plan: At this point she has recovered nicely from her treatments. We talked about trying to get her established with a new primary care person. She is also in need of her Ambien refill which I called the pharmacy and got that set up for her. She otherwise will be getting her mammograms annually. At this point she will be scheduled for her mammograms every October. Signed by: 02/13/2025 11:46:53 AM <<Signature on File>> Time spent with patient: 35 CPT Code: CPT Code:
== END 2025-02-14 23:59 | disposition home or self-care (01) ==
PROVIDERS: PCP Nurse Practitioner Family; Visit Provider Internal Medicine
DX: C50.912 Malignant neoplasm of unspecified site of left female breast (principal); Z86.19 Personal history of other infectious and parasitic diseases
CPT/HCPCS: 99214